=== PATIENT | male | born 1985 | race Caucasian/White ===

== ENCOUNTER 2024-01-14 14:50 | Outpatient (CLI) | payer BC, SELFPAY | END 2024-01-14 14:51 | disposition home or self-care (01) | PROVIDERS: PCP Family Medicine; Visit Provider Family Medicine | DX: I10 Essential (primary) hypertension (principal); Z13.220 Encounter for screening for lipoid disorders | CPT/HCPCS: 80048; 80061 ==

== ENCOUNTER 2025-02-24 08:55 | Outpatient (CLI) | payer BC, SELFPAY | END 2025-02-24 08:56 | disposition home or self-care (01) | LOC: LKVREF 08:57 | PROVIDERS: PCP Family Medicine; Visit Provider Family Medicine | DX: I10 Essential (primary) hypertension (principal) | CPT/HCPCS: 80048 ==